=== PATIENT | female | born 1970 | race Caucasian/White ===

== ENCOUNTER 2016-11-18 17:05 | Emergency (ER) | payer OTHER ==
[~2016-11-18] VITALS: Ht 157.5 cm; Wt 96.6 kg
[~2016-11-18 17:05] MED LIST: CITA20 PO; IBUP600T26 PO; OMPR20CCR PO; SIMV1TAB76 PO; VENL75 PO
[2016-11-18 17:11] VITALS: BP 138/101; PULSE 88; RESP 15; TEMP 97.9; O2SAT 98
[2016-11-18] MEDS ORDERED: NAPR500 PO (18:04)
--- NOTE | 2016-11-18 18:04 | PD ---
HPI Chief Complaint: Injury Time Seen by Provider: 17:49 Travel History International Travel<30 days: No Contact w/Intl Traveler<30days: No Traveled to known affect area: No History of Present Illness HPI Is a 46 year-old woman who presents to the emergency department complaining of left arm pain. The pain centered around the lateral aspect of the left elbow. Is been ongoing for several weeks. She movement precipitates the pain and she actually dropped her coffee cup today because a sudden onset of pain. She denies any overt weakness, no numbness tingling. She's never had trouble before. 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 She otherwise has been feeling well. No other complaints. History Past Medical History Medical History: Denies Significant Hx LMP: 513/ : 4 Para: 3 Social History Alcohol Use: No Tobacco Use: Yes (1PPD) Allergies-Medications (Allergen,Severity, Reaction): Coded Allergies: Penicillin (Verified Allergy, Severe, rash, 11/18/16) Demerol (Verified Adverse Reaction, Severe, "hallucinates", 11/18/16) Reported Meds & Prescriptions Reported Meds & Active Scripts Active No Active Prescriptions or Reported Medications Review of Systems Except as stated in HPI: all other systems reviewed are Neg Physical Exam Narrative GENERAL: Well-appearing 46 year-old woman, no acute distress. SKIN: Warm and dry. CARDIOVASCULAR: Warm and well perfused. RESPIRATORY: Normal rate and effort. MUSCULOSKELETAL: Focused evaluation of the left upper extremity reveals tenderness or on the left lateral upper condyle, tenderness reproduced with flexion with the arm half pronated, and reproduce pain at the lateral upper condyle. There is no other bony tenderness. There is obvious swelling or effusion or other abnormality in the elbow itself. Distally, radial/ulnar/ median nerve function is intact. NEUROLOGICAL: Awake and alert. No gross deficits. Data Data Last Documented VS Vital Signs Date Time Temp Pulse Resp B/P Pulse Ox O2 Delivery O2 Flow Rate FiO2 11/18/16 17:11 97.9 88 15 138/101 98 MDM Medical Decision Making Medical Screen Exam Complete: Yes Emergency Medical Condition: Yes Differential Diagnosis Lateral epicondylitis, strain or sprain, contusion, other Narrative Course Medical decision-making new Is a 46 year-old woman with tenderness on the lateral upper condyle reproduction of pain with engagement of the brachial radialis muscle, think she has lateral epicondylitis. However there is no clear precipitant. We'll recommend anti-inflammatory medicines, bracing, outpatient follow-up. Diagnosis Primary Impression: Lateral epicondylitis Additional Instructions: Take Naprosyn as prescribed. Use counter force brace as described. Follow-up with her primary doctor for not completely well in the next 2-4 days. Med/Other Pt SpecificInfo: Prescription(s) given Scripts Naproxen (Naprosyn)500 Mg [id number] Mg PO BID PRN (PAIN SCALE 1 TO 10) #20 TAB Prov:Farhat Baumann MD 11/18/16 Disposition: 01 DISCHARGE HOME Condition: Stable Farhat Baumann MD Nov 18, 2016 18:04
== END 2016-11-18 18:13 | disposition home or self-care (01) ==
LOC: PHEFT 17:05
DX: M77.12 Lateral epicondylitis, left elbow (principal); F17.210 Nicotine dependence, cigarettes, uncomplicated
CPT/HCPCS: 99282